=== PATIENT | female | born 1945 | race Two or more races ===

== ENCOUNTER 2017-06-10 15:03 | Inpatient (IN) | payer MEDICAID, OTHER ==
[~2017-06-10] VITALS: Ht 152.4 cm; Wt 69.9 kg
[2017-06-10] MEDS ORDERED: WARF2TAB55 PO (15:16)
[2017-06-10] MEDS ORDERED: ATOR-2 PO (15:16)
[2017-06-10] MEDS ORDERED: AMLO5TAB4 PO (15:16)
[2017-06-10] MEDS ORDERED: METO-385 PO (15:16)
[2017-06-10 16:50] LABS: BASOPHILS % 1.2 % (0.0-2.0); EOSINOPHILS % 3.1 % (0.0-5.0); HEMATOCRIT. 39.6 % (36.0-48.0); HEMOGLOBIN. 14.1 g/dL (12.0-16.0); LYMPHOCYTES % 22.9 % (20.0-50.0); MEAN CORPUSCULAR HEMOGLOBIN 31.1 pg (28.0-32.0); MEAN CORPUSCULAR VOLUME 87.2 fL (81.0-99.0); MEAN PLATELET VOLUME 8.4 fl (7.4-10.4); MONOCYTES % 8.9 % (2.0-8.0); NEUTROPHILS % 63.9 % (40.0-76.0); PLATELET 192 x1000/uL (130-400); RED BLOOD CELL COUNT 4.54 mill/uL (4.2-5.4); RED CELL DISTRIBUTION WIDTH 13.6 % (11.6-14.6)
[2017-06-10 16:55] LABS: INR 1.6; PARTIAL THROMBOPLASTIN TIME 32.7 sec (23.4-31.0); PROTHROMBIN TIME 16.2 sec (9.4-11.6)
[2017-06-10 17:03] LABS: CARBON DIOXIDE 30 mEq/L (21-32); CHLORIDE 107 mEq/L (98-107); TROPONIN I < 0.02 ng/mL (0.00-0.04)
[2017-06-10 20:30] VITALS: BP 151/48
[2017-06-10 20:55] VITALS: BP 151/48
[2017-06-10] MEDS ORDERED: NA PHOS,M-B/NA PHOS,DI-BA ENEMA 118ML PR PRN (22:00)
[2017-06-10] MEDS ORDERED: ACETAMINOPHEN 650MG SUPP PR PRN (22:00)
[2017-06-10] MEDS ORDERED: DOCUSATE SODIUM 100MG CAPSULE PO PRN (22:00)
[2017-06-10] MEDS ORDERED: HYDROCODONE/ACETAMINOPHEN 5/325MG TABLET PO PRN (22:00)
[2017-06-10] MEDS ORDERED: ONDANSETRON HCL 4MG/2ML VIAL IV PRN (22:00)
[2017-06-10] MEDS ORDERED: MAGNESIUM/ALUMINUM HYDROXIDE/SIMETHICONE 30ML UDC PO PRN (22:00)
[2017-06-10] MEDS ORDERED: CLONIDINE 0.1MG TABLET PO PRN (22:00)
[2017-06-10] MEDS ORDERED: GUAIFENESIN 200MG/10ML SUGAR FREE UDC PO PRN (22:00)
[2017-06-10] MEDS ORDERED: ACETAMINOPHEN 650MG/20.3ML UDC GT PRN (22:00)
[2017-06-10] MEDS ORDERED: ACETAMINOPHEN 325MG TABLET PO PRN (22:00)
[2017-06-10] MEDS ORDERED: IPRATROPIUM/ALBUTEROL 0.5-3(2.5)MG/3ML NEB INH PRN (22:00)
[2017-06-11 00:52] LABS: CREATINE KINASE 75 IU/L (26-192); CREATINE KINASE MB FRACTION < 0.5 ng/mL (0.5-3.6); TROPONIN I < 0.02 ng/mL (0.00-0.04)
[2017-06-11 04:00] VITALS: BP 138/52
[2017-06-11] MEDS: SODIUM CHLORIDE 0.9% INJ 3ML FLUSH IVF SCH ×3 (05:25→21:29)
[2017-06-11] MEDS: PANTOPRAZOLE 40MG DR TABLET PO SCH (06:10)
[2017-06-11 06:52] LABS: BASOPHILS % 0.8 % (0.0-2.0); EOSINOPHILS % 3.5 % (0.0-5.0); HEMATOCRIT. 37.9 % (36.0-48.0); HEMOGLOBIN. 13.3 g/dL (12.0-16.0); LYMPHOCYTES % 22.1 % (20.0-50.0); MEAN CORPUSCULAR HEMOGLOBIN 30.7 pg (28.0-32.0); MEAN CORPUSCULAR VOLUME 87.6 fL (81.0-99.0); MEAN PLATELET VOLUME 8.5 fl (7.4-10.4); MONOCYTES % 9.3 % (2.0-8.0); NEUTROPHILS % 64.3 % (40.0-76.0); PLATELET 178 x1000/uL (130-400); RED BLOOD CELL COUNT 4.32 mill/uL (4.2-5.4); RED CELL DISTRIBUTION WIDTH 13.9 % (11.6-14.6)
[2017-06-11 07:01] LABS: CREATINE KINASE 61 IU/L (26-192); CREATINE KINASE MB FRACTION < 0.5 ng/mL (0.5-3.6); TROPONIN I < 0.02 ng/mL (0.00-0.04)
[2017-06-11 07:05] LABS: CARBON DIOXIDE 26 mEq/L (21-32); CHLORIDE 109 mEq/L (98-107); HDL CHOLESTEROL 43 mg/dL (40-59); LDL CHOLESTEROL 79 mg/dL (5-100)
[2017-06-11 07:13] VITALS: BP 134/45
[2017-06-11 07:49] LABS: INR 1.5; PROTHROMBIN TIME 15.4 sec (9.4-11.6)
[2017-06-11] MEDS ORDERED: POTASSIUM CHLORIDE 20MEQ TABLET SR PO NR (10:00)
[2017-06-11] MEDS ORDERED: ENOXAPARIN 30MG/0.3ML SYR SUBCUT SCH (10:15)
[2017-06-11] MEDS: AMLODIPINE 5MG TABLET PO SCH (10:23)
[2017-06-11 11:30] VITALS: BP 171/42
[2017-06-11 12:55] LABS: CLARITY URINE CLEAR (CLEAR); COLOR URINE YELLOW (YELLOW); KETONES URINE NEGATIVE (NEGATIVE); LEUKOCYTE ESTERASE URINE TRACE (NEGATIVE); NITRITE URINE NEGATIVE (NEGATIVE); OCCULT BLOOD URINE 2+ (NEGATIVE); PROTEIN URINE NEGATIVE (NEGATIVE); SPECIFIC GRAVITY URINE 1.017 (1.005-1.030); UROBILINOGEN URINE 0.2 E.U./dL (0.2-1.0)
[2017-06-11] MEDS ORDERED: ENOXAPARIN 60MG/0.6ML SYR SUBCUT SCH (13:07)
[2017-06-11 14:01] LABS: *AMPHETAMINES SCREEN URINE NEGATIVE (NEGATIVE); *BARBITURATES SCREEN URINE NEGATIVE (NEGATIVE); *BENZODIAZEPINES SCREEN URINE NEGATIVE (NEGATIVE); *COCAINE SCREEN URINE NEGATIVE (NEGATIVE); CANNABINOID URINE SCREEN NEGATIVE (NEGATIVE); METHADONE URINE SCREEN NEGATIVE (NEGATIVE); OPIATES URINE SCREEN NEGATIVE (NEGATIVE); PHENCYCLIDINE URINE SCREEN NEGATIVE (NEGATIVE)
[2017-06-11 16:00] VITALS: BP 123/50
[2017-06-11] MEDS ORDERED: WARFARIN SODIUM 2MG TABLET PO NR (18:00)
[2017-06-11] MEDS ORDERED: WARFARIN SODIUM 5MG TABLET PO SCH (18:00)
[2017-06-11 20:00] VITALS: BP 128/42
[2017-06-11 23:05] VITALS: BP 116/48
[2017-06-12 04:00] VITALS: BP 113/38
[2017-06-12] MEDS: SODIUM CHLORIDE 0.9% INJ 3ML FLUSH IVF SCH ×3 (05:42→21:38)
[2017-06-12] MEDS: PANTOPRAZOLE 40MG DR TABLET PO SCH (05:42)
[2017-06-12 06:10] LABS: BASOPHILS % 0.8 % (0.0-2.0); EOSINOPHILS % 3.1 % (0.0-5.0); HEMATOCRIT. 39.7 % (36.0-48.0); HEMOGLOBIN. 13.6 g/dL (12.0-16.0); LYMPHOCYTES % 25.4 % (20.0-50.0); MEAN CORPUSCULAR HEMOGLOBIN 30.5 pg (28.0-32.0); MEAN CORPUSCULAR VOLUME 88.7 fL (81.0-99.0); MEAN PLATELET VOLUME 8.7 fl (7.4-10.4); MONOCYTES % 8.2 % (2.0-8.0); NEUTROPHILS % 62.5 % (40.0-76.0); PLATELET 178 x1000/uL (130-400); RED BLOOD CELL COUNT 4.47 mill/uL (4.2-5.4); RED CELL DISTRIBUTION WIDTH 13.9 % (11.6-14.6)
[2017-06-12 06:11] LABS: INR 1.4; PROTHROMBIN TIME 14.2 sec (9.4-11.6)
[2017-06-12 08:00] VITALS: BP 126/76
[2017-06-12] MEDS: AMLODIPINE 5MG TABLET PO SCH (08:26)
[2017-06-12 08:29] LABS: CHLORIDE 108 mEq/L (98-107)
[2017-06-12 09:22] LABS: CARBON DIOXIDE 24 mEq/L (21-32)
[2017-06-12] MEDS ORDERED: POTASSIUM CHLORIDE 20MEQ TABLET SR PO NR (10:30)
[2017-06-12] MEDS: ENOXAPARIN 60MG/0.6ML SYR SUBCUT SCH ×2 (11:22→21:38)
[2017-06-12 12:00] VITALS: BP 109/45
[2017-06-12 16:00] VITALS: BP 101/54
[2017-06-12] MEDS ORDERED: WARFARIN SODIUM 7.5MG TABLET PO NR (18:00)
[2017-06-12] MEDS ORDERED: WARFARIN SODIUM 5MG TABLET PO NR (18:18)
[2017-06-12 20:00] VITALS: BP 134/51
[2017-06-13] VITALS: BP 121/60
[2017-06-13 04:00] VITALS: BP 135/44
[2017-06-13 06:47] LABS: BASOPHILS % 0.8 % (0.0-2.0); EOSINOPHILS % 3.2 % (0.0-5.0); HEMOGLOBIN. 13.9 g/dL (12.0-16.0); LYMPHOCYTES % 25.7 % (20.0-50.0); MEAN CORPUSCULAR VOLUME 88.8 fL (81.0-99.0); MEAN PLATELET VOLUME 8.3 fl (7.4-10.4); MONOCYTES % 10.4 % (2.0-8.0); NEUTROPHILS % 59.9 % (40.0-76.0); PLATELET 184 x1000/uL (130-400); RED BLOOD CELL COUNT 4.62 mill/uL (4.2-5.4); RED CELL DISTRIBUTION WIDTH 13.8 % (11.6-14.6)
[2017-06-13] MEDS: SODIUM CHLORIDE 0.9% INJ 3ML FLUSH IVF SCH (06:50)
[2017-06-13] MEDS: PANTOPRAZOLE 40MG DR TABLET PO SCH (06:50)
[2017-06-13 07:25] LABS: INR 2.4; PROTHROMBIN TIME 24.7 sec (9.4-11.6)
[2017-06-13 08:00] VITALS: BP 123/35
[2017-06-13] MEDS: ENOXAPARIN 60MG/0.6ML SYR SUBCUT SCH (08:31)
[2017-06-13] MEDS: AMLODIPINE 5MG TABLET PO SCH (08:31)
[2017-06-13 11:55] VITALS: BP 123/43
[2017-06-13 12:00] VITALS: BP 118/50
== END 2017-06-13 13:15 | disposition home or self-care (01) | DRG 201 ==
LOC: ER 15:17 → 8WST 17:29 → EDBEDREQTM 17:30 → EDBEDREQ 17:30 → ENRESERV 19:36
PROVIDERS: ADMIT Family Medicine; ATTEND Family Medicine
DX: R00.1 Bradycardia, unspecified (principal); D68.8 Other specified coagulation defects; I11.9 Hypertensive heart disease without heart failure; E44.1 Mild protein-calorie malnutrition; E87.5 Hyperkalemia; E88.09 Other disorders of plasma-protein metabolism, not elsewhere classified; E87.6 Hypokalemia; R06.02 Shortness of breath; E66.9 Obesity, unspecified; E78.00 Pure hypercholesterolemia, unspecified; I25.10 Atherosclerotic heart disease of native coronary artery without angina pectoris; E78.5 Hyperlipidemia, unspecified; T45.515A Adverse effect of anticoagulants, initial encounter; Y92.89 Other specified places as the place of occurrence of the external cause; Z87.891 Personal history of nicotine dependence; Z95.1 Presence of aortocoronary bypass graft; Z95.2 Presence of prosthetic heart valve; Z79.899 Other long term (current) drug therapy; Z79.01 Long term (current) use of anticoagulants; Z68.30 Body mass index [BMI] 30.0-30.9, adult
CPT/HCPCS: 36415; 71010; 80048; 80053; 80061; 80305; 81001; 82550; 82553; 83690; 83735; 83880; 84443; 84484; 85025; 85379; 85610; 85730; 87040; 87086; 93005; 99285; J1650